=== PATIENT | female | born 1950 | race Caucasian/White ===

== ENCOUNTER 2018-05-24 21:06 | Emergency (ER) | payer MEDICARE, OTHER ==
[~2018-05-24] VITALS: Ht 162.6 cm; Wt 72.7 kg
[~2018-05-24 21:06] MED LIST: PREMARIN0.625 MG PO; SYNTHROID PO
[2018-05-24 21:11] VITALS: TEMP 97.5
[2018-05-24 21:39] LABS: BASO # 0.1 (0.0-0.2); BASO % 0.8 % (0.0-2.0); EOS # 0.9 (0.0-0.7); EOS % 6.8 % (0-4.0); GRAN # 6.8 (1.4-6.5); GRAN % 54.6 % (42.2-75.2); HEMATOCRIT 47.3 % (37.0-47.0); LYMPH # 3.5 (1.2-3.4); LYMPH % 28.3 % (20.0-51.0); MEAN CELL VOLUME 92 fl (80.0-100.0); MEAN CORPUSCULAR HEMOGLOBIN 31 pg (27.0-31.0); MEAN CORPUSCULAR HGB CONC 34 g/dl (33.0-37.0); MEAN PLATELET VOLUME 9.5 fl (7.4-10.4); MONO # 1.2 (0.1-0.6); MONO % 9.2 % (1.7-9.3); PLATELET COUNT 273 K/mm3 (130-400); RED BLOOD COUNT 5.17 M/mm3 (4.10-5.30); REDCELL DISTRIBUTION WIDTH-CV 13.9 % (11.5-14.5)
[2018-05-24] MEDS ORDERED: ELIQUIS 5MG PO (21:44)
[2018-05-24] MEDS ORDERED: NORVASC 5MG5 MG/TAB PO (21:44)
[2018-05-24] MEDS ORDERED: SYNTHROID0.1 MG/TAB PO (21:45)
[2018-05-24] MEDS ORDERED: CARTIA XT180 MG PO (21:45)
[2018-05-24 21:46] LABS: PROTHROMBIN TIME 10.8 SECONDS (9.7-12.8)
[2018-05-24 21:48] LABS: PARTIAL THROMBOPLASTIN TIME 36.8 SECONDS (26.0-37.0)
[2018-05-24 21:56] LABS: ALANINE AMINOTRANSFERASE 37 U/L (9-52); ALBUMIN 4.5 gm/dL (3.5-5.0); ALKALINE PHOSPHATASE 88 U/L (50-136); ANION GAP 8 mmol/L (7-16); AST,SGOT 24 U/L (15-37); BILIRUBIN,TOTAL 0.5 mg/dL (0.0-1.0); BLOOD UREA NITROGEN 18 mg/dL (7-17); CALCIUM 9.6 mg/dL (8.4-10.2); CARBON DIOXIDE 26 mmol/L (22-30); CHLORIDE 109 mmol/L (98-107); CREATININE, serum 0.66 mg/dL (0.52-1.25); GLUCOSE 144 mg/dL (74-106); POTASSIUM 3.6 mmol/L (3.4-5.0); SODIUM 143 mmol/L (137-145)
[2018-05-24 22:08] LABS: TROPONIN-I < 0.012 ng/mL (0.000-0.034)
[2018-05-24 23:15] VITALS: BP 125/67; PULSE 88
== END 2018-05-24 23:39 | disposition home or self-care (01) ==
LOC: COL.ER 21:06
PROVIDERS: Family Medicine
DX: I48.91 Unspecified atrial fibrillation (principal); Z79.01 Long term (current) use of anticoagulants